=== PATIENT | male | born 1975 | race Caucasian/White ===

== ENCOUNTER 2019-01-22 18:20 | Emergency (ER) | payer MEDICAID ==
[~2019-01-22] VITALS: Ht 160 cm; Wt 61.0 kg
[~2019-01-22 18:20] MED LIST: FAMO-96 PO; LORA10TA3 PO; PRED20TA PO
[2019-01-22 18:27] VITALS: BP 145/92; PULSE 101; RESP 20; Ht 160 cm; Wt 61.0 kg
[2019-01-22] MEDS ORDERED: FAMOTIDINE 20 MG TAB PO ONE (20:00)
[2019-01-22] MEDS ORDERED: LORATADINE 10 MG TAB PO ONE (20:00)
[2019-01-22] MEDS ORDERED: predniSONE 20 MG TAB PO ONE (20:00)
== END 2019-01-22 20:28 | disposition home or self-care (01) ==
LOC: FTE 18:20
DX: R22.0 Localized swelling, mass and lump, head (principal); H02.849 Edema of unspecified eye, unspecified eyelid
CPT/HCPCS: J7512; Z7502; Z7610; 99283